=== PATIENT | female | born 1980 | race Caucasian/White ===

== ENCOUNTER 2022-05-04 00:12 | Inpatient (IN) ==
[2022-05-04 01:18] LABS: Bilirubin,Urine Negative (Negative); Blood,Urine Negative (Negative); Clarity,Urine Clear (Clear); Color,Urine Colorless (Yellow); Glucose,Urine (UA) Normal (Normal); Ketones,Urine Negative (Negative); Leukocyte Esterase,Urine Negative (Negative); Nitrite,Urine Negative (Negative); PH,Urine 6.5 pH Units (5.0-8.0); Protein,Urine Negative (Neg-Trace); Specific Gravity,Urine 1.007 (1.010-1.025); Urobilinogen,Urine Normal (Normal)
[2022-05-04 01:30] LABS: Amphetamine Screen,Urine Negative ng/mL (Cutoff=1000); Barbiturate Screen,Urine Negative ng/mL (Cutoff=200); Benzodiazepines Screen,Urine Negative ng/mL (Cutoff=200); Cannabinoid Screen,Urine Negative ng/mL (Cutoff = 50); Cocaine Screen,Urine Negative ng/mL (Cutoff= 300); Opiate Screen,Urine Negative ng/mL (Cutoff=300); Phencyclidine Screen,Urine Negative ng/mL (Cutoff=25)
[2022-05-04 01:33] LABS: Basophils # 0.1 K/mcL (0.0-0.2); Eosinophils # 0.6 K/mcL (0.0-0.6); Eosinophils % 5.1 %; Hematocrit 34.6 % (35.3-44.9); Hemoglobin 11.4 g/dL (11.5-15.4); Immature Granulocytes % 0.2 % (0-4); Lymphocytes % 18.6 %; Mean Corpuscular HGB Conc 32.9 g/dL (31.6-35.5); Mean Corpuscular Hemoglobin 32.6 pg (28.0-33.3); Mean Corpuscular Volume 98.9 fL (83.0-100.0); Mean Platelet Volume 11.4 fL (9.4-12.4); Monocytes # 1.1 K/mcL (0.0-1.3); Monocytes % 9.7 %; Neutrophils # 7.1 K/mcL (1.6-8.9); Platelet Count 273 K/mcL (140-400); Red Cell Distribution Width 12.8 % (11.5-14.5); Segmented Neutrophils % 65.4 %; White Blood Count 10.9 K/mcL (4.3-11.1)
[2022-05-04 01:40] LABS: Acetaminophen < 10 mcg/mL (10-20); BUN/Creatinine Ratio 11 (6-26); Blood Urea Nitrogen 10 mg/dL (6-20); Calcium 9.5 mg/dL (8.6-10.3); Carbon Dioxide 25 mEq/L (23-29); Chloride 107 mEq/L (98-107); Chol/HDL Ratio 2.8 (0-4.9); Cholesterol 180 mg/dL (< 200); Ethanol < 10 mg/dL (Less than 10); Glucose 116 mg/dL (70-105); HDL Cholesterol 64 mg/dL (40-59); LDL Cholesterol,Calculated 105 mg/dL (< 100); Osmolality,Calculated 288 (280-300); Potassium 3.4 mEq/L (3.5-5.1); Salicylate < 2.5 mg/dL (15.0-30.0); Sodium 139 mEq/L (136-145); Triglycerides 55 mg/dL (< 150); eGFR For African Americans > 60 (> 60); eGFR For Non-African Americans > 60 (> 60)
[2022-05-04] MEDS ORDERED: *HR* LORazepam 2 MG/ML VIAL IM PRN (03:28)
[2022-05-04] MEDS ORDERED: Acetaminophen 325 MG TABLET PO PRN (03:28)
[2022-05-04] MEDS ORDERED: haloperidoL 5 MG TABLET PO PRN (03:28)
[2022-05-04] MEDS ORDERED: Haloperidol Lactate 5 MG/ML VIAL IM PRN (03:28)
[2022-05-04] MEDS ORDERED: *HR* LORazepam 1 MG TABLET PO PRN (03:41)
[2022-05-04 03:44] LABS: Estimated Average Glucose 97 mg/dl
[2022-05-04] MEDS: QUEtiapine Fumarate 25 MG TABLET PO PRN (03:54)
[2022-05-04 04:01] LABS: Influenza A PCR Negative (Negative); Influenza B PCR Negative (Negative); Resp. Syncytial Virus PCR Negative (Negative)
[2022-05-04 04:07] LABS: SARS-CoV-2 by PCR (In House) Negative (Negative)
[2022-05-04] MEDS: hydrOXYzine pamoate 25 MG CAPSULE PO PRN ×3 (05:56→21:57)
[2022-05-04] MEDS ORDERED: Mag Hydrox/Al Hydrox/Simeth 30 ML UDC PO PRN (08:02)
[2022-05-04] MEDS ORDERED: Lithium Oral Soln 300 MG/5 ML (8 mEq/5mL) UDC PO SCH (12:00)
[2022-05-04] MEDS ORDERED: Lithium Carbonate 300 MG CAPSULE PO SCH (12:15)
[2022-05-04] MEDS: Lithium Carbonate 300 MG CAPSULE PO SCH ×2 (12:22→21:57)
[2022-05-04] MEDS ORDERED: QUEtiapine Fumarate 25 MG TABLET PO SCH (21:00)
[2022-05-05] MEDS: Levothyroxine 25 MCG TABLET PO SCH (06:47)
[2022-05-05] MEDS: Lithium Carbonate 300 MG CAPSULE PO SCH ×2 (09:43→22:18)
[2022-05-05] MEDS ORDERED: QUEtiapine Fumarate 25 MG TABLET PO PRN (13:14)
[2022-05-05] MEDS: hydrOXYzine pamoate 25 MG CAPSULE PO PRN ×2 (13:18→16:28)
[2022-05-05] MEDS: QUEtiapine Fumarate 100 MG TABLET PO SCH (22:18)
[2022-05-06] MEDS: Levothyroxine 25 MCG TABLET PO SCH (07:03)
[2022-05-06] MEDS: Lithium Carbonate 300 MG CAPSULE PO SCH ×2 (08:41→21:22)
[2022-05-06] MEDS: hydrOXYzine pamoate 25 MG CAPSULE PO PRN ×3 (08:41→21:22)
[2022-05-06] MEDS: MOM Conc 10 ML UD.LIQ PO PRN (10:45)
[2022-05-06] MEDS: QUEtiapine Fumarate 100 MG TABLET PO SCH (21:22)
[2022-05-07] MEDS: Levothyroxine 25 MCG TABLET PO SCH (06:37)
[2022-05-07] MEDS: Lithium Carbonate 300 MG CAPSULE PO SCH ×2 (08:56→21:29)
[2022-05-07] MEDS: hydrOXYzine pamoate 25 MG CAPSULE PO PRN ×2 (13:18→21:29)
[2022-05-07] MEDS ORDERED: QUEtiapine Fumarate 100 MG TABLET PO SCH (21:00)
[2022-05-07] MEDS: QUEtiapine Fumarate 25 MG TABLET PO PRN (23:52)
[2022-05-08] MEDS: hydrOXYzine pamoate 25 MG CAPSULE PO PRN (03:22)
[2022-05-08] MEDS: Lithium Carbonate 300 MG CAPSULE PO SCH (08:34)
[2022-05-08] MEDS: MOM Conc 10 ML UD.LIQ PO PRN (14:50)
[2022-05-08] MEDS: Lithium Carbonate ER 300 MG TABLET.ER PO SCH (21:10)
[2022-05-08] MEDS: QUEtiapine Fumarate 100 MG TABLET PO SCH (21:10)
[2022-05-09] MEDS: Lithium Carbonate ER 300 MG TABLET.ER PO SCH (20:28)
[2022-05-09] MEDS: QUEtiapine Fumarate 100 MG TABLET PO SCH (20:28)
[2022-05-09] MEDS: hydrOXYzine pamoate 25 MG CAPSULE PO PRN (20:28)
[2022-05-10] MEDS: hydrOXYzine pamoate 25 MG CAPSULE PO PRN (12:47)
[2022-05-10] MEDS: Lithium Carbonate ER 300 MG TABLET.ER PO SCH (20:27)
[2022-05-10] MEDS: QUEtiapine Fumarate 100 MG TABLET PO SCH (20:27)
[2022-05-11 09:20] VITALS: BP 113/73; PULSE 68; TEMP 98; O2SAT 100
== END 2022-05-11 13:55 | disposition home or self-care (01) | DRG 885 ==
LOC: EMEROOARM 00:12 → 1ANU 04:16 → SUATTDRO 04:16 → 1ANU 04:44
PROVIDERS: ADMIT Psychiatry & Neurology Psychiatry; ATTEND Psychiatry & Neurology Forensic Psychiatry